=== PATIENT | female | born 1990 | race American Indian/Alaskan Native ===

== ENCOUNTER 2017-06-26 10:55 | Emergency (ER) | payer SELFPAY ==
[2017-06-26 14:28] LABS: Bilirubin,Urine NEG (Negative); Blood,Urine NEG (Negative); Calcium Oxalate Crystals,Urine FEW; Color,Urine Yellow (Yellow); Mucus,Urine 2+ /HPF; Nitrite,Urine NEG (Negative)
[2017-06-26] MEDS ORDERED: BENADRYL PO ONE (17:17)
[2017-06-26] MEDS ORDERED: TYLENOL PO ONE (17:17)
--- NOTE | 2017-06-26 17:45 | Emergency Department Report ---
- General Chief Complaint: Upper Respiratory Infection Stated Complaint: FLU LIKE SYMPTOMS Time Seen by Provider: 06/26/17 16:52 Source: patient Mode of arrival: Ambulatory Limitations: No Limitations - History of Present Illness Initial Comments: 27-year-old female past medical history smoker, currently presents with complaint of 3-4 days of cough sore throat and body aches. MD Complaint: cough, rhinorrhea, nasal congestion Onset/Timin -: days(s) Severity: mild Consistency: constant Improves With: nothing Worsens With: nothing Context: sick contacts Associated Symptoms: fever, headache, nasal congestion, sore throat, cough Treatments Prior to Arrival: none - Related Data Previous Rx's Medication Instructions Recorded Last Taken Type Triamcinolone Acetonide 453 gm TP TID #1 bottle 04/28/13 Unknown Rx [Triamcinolone Acetonide Cream 0.1%] hydrOXYzine HCL [Atarax] 25 mg PO Q6HR PRN #60 tablet 04/28/13 Unknown Rx Acetaminophen [Acetaminophen TAB] 500 mg PO Q6HR PRN #30 tablet 06/26/17 Unknown Rx Benzonatate [Tessalon Perles] 100 mg PO Q8HR PRN #20 capsule 06/26/17 Unknown Rx Dextromethorphan Hb/Doxylamine 10 ml PO Q6H PRN #1 bottle 06/26/17 Unknown Rx [Safetussin Pm Liquid] Ondansetron [Zofran Odt] 4 mg PO Q8H PRN #20 tab.rapdis 06/26/17 Unknown Rx Allergies Allergy/AdvReac Type Severity Reaction Status Date / Time Penicillins Allergy Rash Verified 04/28/13 15:16 ED Review of Systems ROS: Stated complaint: FLU LIKE SYMPTOMS Other details as noted in HPI Constitutional: denies: chills, fever Eyes: denies: eye pain, eye discharge, vision change ENT: throat pain, congestion. denies: ear pain Respiratory: cough. denies: shortness of breath, wheezing Cardiovascular: denies: chest pain, palpitations Endocrine: no symptoms reported Gastrointestinal: denies: abdominal pain, nausea, diarrhea Genitourinary: denies: urgency, dysuria, discharge Musculoskeletal: denies: back pain, joint swelling, arthralgia Skin: denies: rash, lesions Neurological: denies: headache, weakness, paresthesias Psychiatric: denies: anxiety, depression Hematological/Lymphatic: denies: easy bleeding, easy bruising ED Past Medical Hx - Past Medical History Previous Medical History?: Yes Additional medical history: vaginal delivery 12-13-2012 - Surgical History Past Surgical History?: No - Social History Smoking Status: Former Smoker Substance Use Type: Alcohol - Medications Home Medications: Home Medications Medication Instructions Recorded Confirmed Last Taken Type Triamcinolone Acetonide 453 gm TP TID #1 bottle 04/28/13 Unknown Rx [Triamcinolone Acetonide Cream 0.1%] hydrOXYzine HCL [Atarax] 25 mg PO Q6HR PRN #60 tablet 04/28/13 Unknown Rx Acetaminophen [Acetaminophen TAB] 500 mg PO Q6HR PRN #30 tablet 06/26/17 Unknown Rx Benzonatate [Tessalon Perles] 100 mg PO Q8HR PRN #20 capsule 06/26/17 Unknown Rx Dextromethorphan Hb/Doxylamine 10 ml PO Q6H PRN #1 bottle 06/26/17 Unknown Rx [Safetussin Pm Liquid] Ondansetron [Zofran Odt] 4 mg PO Q8H PRN #20 tab.rapdis 06/26/17 Unknown Rx ED Physical Exam - General Limitations: No Limitations General appearance: alert, in no apparent distress - Head Head exam: Present: atraumatic, normocephalic - Eye Eye exam: Present: normal appearance, PERRL, EOMI - ENT ENT exam: Present: mucous membranes moist - Neck Neck exam: Present: normal inspection - Respiratory Respiratory exam: Present: normal lung sounds bilaterally. Absent: respiratory distress - Cardiovascular Cardiovascular Exam: Present: regular rate, normal rhythm. Absent: systolic murmur, diastolic murmur, rubs, gallop - GI/Abdominal GI/Abdominal exam: Present: soft, normal bowel sounds - Extremities Exam Extremities exam: Present: normal inspection - Back Exam Back exam: Present: normal inspection - Neurological Exam Neurological exam: Present: alert, oriented X3 - Psychiatric Psychiatric exam: Present: normal affect, normal mood - Skin Skin exam: Present: warm, dry, intact, normal color. Absent: rash ED Course Vital Signs 06/26/17 12:04 Temperature 98.6 F Pulse Rate 94 H Respiratory 20 Rate Blood Pressure 118/76 O2 Sat by Pulse 99 Oximetry ED Medical Decision Making - Medical Decision Making A/P: Flulike symptoms, 1-safetussin, cepacol throat lozenges, Tylenol when necessary. 2-case discussed with Dr. Ramsey for discharge. As patient's symptoms started approximately 4 days ago it is unlikely that Tamiflu will be clinically useful for patient. Flu swab negative 3-vital signs stable for discharge 4- follow-up with primary care and [facility]. Patient has no vaginal bleeding at this time. Critical care attestation.: If time is entered above; I have spent that time in minutes in the direct care of this critically ill patient, excluding procedure time. ED Disposition Clinical Impression: Flu-like symptoms, Viral syndrome, Cough Disposition: DC- TO HOME OR SELFCARE Is pt being admited?: No Does the pt Need Aspirin: No Condition: Stable Instructions: Viral Syndrome (ED), Upper Respiratory Infection (ED), Cold Symptoms (ED), (ED) Prescriptions: Acetaminophen [Acetaminophen TAB] 500 mg PO Q6HR PRN #30 tablet PRN Reason: Fever Benzonatate [Tessalon Perles] 100 mg PO Q8HR PRN #20 capsule PRN Reason: Cough Dextromethorphan Hb/Doxylamine [Safetussin Pm Liquid] 10 ml PO Q6H PRN #1 bottle PRN Reason: Cough Ondansetron [Zofran Odt] 4 mg PO Q8H PRN #20 tab.rapdis PRN Reason: Nausea Referrals: [facility] [place] [Outside] - 3-5 Days [facility] [Outside] - 3-5 Days [facility] [Provider Group] - 3-5 Days [facility] [Provider Group] - 3-5 Days Forms: Accompanied Note, Work/School Release Form(ED) Time of Disposition: 19:23
[2017-06-26 19:49] VITALS: BP 117/80
== END 2017-06-26 19:40 | disposition home or self-care (01) ==
LOC: ED 10:55
DX: O26.899 Other specified pregnancy related conditions, unspecified trimester (principal); B34.9 Viral infection, unspecified; Z88.0 Allergy status to penicillin; Z3A.00 Weeks of gestation of pregnancy not specified; Z87.891 Personal history of nicotine dependence
CPT/HCPCS: 36415; 81001; 84702; 87400; 99283

== ENCOUNTER 2019-02-16 12:13 | Emergency (ER) | payer SELFPAY ==
--- NOTE | 2019-02-16 13:29 | Event Note ---
ED Screening Note ED Screening Note: vaginal bleeding for two weeks states she has two menstrual cycles a month changing tampons every hour has not been to the [facility] This initial assessment/diagnostic orders/clinical plan/treatment(s) is/are subject to change based on patients health status, clinical progression and re- assessment by fellow clinical providers in the ED. Further treatment and workup at subsequent clinical providers discretion. Patient/guardian urged not to elope from the ED as their condition may be serious if not clinically assessed and managed. Initial orders include: ua, labs
[2019-02-16 14:04] LABS: Hematocrit 42.8 % (30.3-42.9); Hemoglobin 14.2 gm/dl (10.1-14.3); Mean Corpuscular HGB Conc 33 % (30-34); Mean Corpuscular Volume 97 fl (79-97); Platelet Count 283 K/mm3 (140-440); Red Blood Count 4.41 M/mm3 (3.65-5.03); Red Cell Distribution Width 13.4 % (13.2-15.2)
[2019-02-16 14:22] LABS: Mucus,Urine 2+ /HPF
[2019-02-16 14:32] LABS: Bilirubin,Urine NEG (Negative); Blood,Urine NEG (Negative); Color,Urine Yellow (Yellow); Protein,Urine <15 mg/dL mg/dL (Negative); Urobilinogen,Urine < 2.0 mg/dL (<2.0)
[2019-02-16 17:47] LABS: Monocytes % (Manual) 0 % (0.0-7.3); RBC Morphology Normal; Total Cells Counted 100
[2019-02-16] MEDS ORDERED: ULTRAM PO ONE (17:59)
--- NOTE | 2019-02-16 19:04 | Emergency Department Report ---
ED Female HPI - General Chief complaint: Abdominal Pain Stated complaint: PELVIC PAIN/FIBRIODS PAIN/FATIGUE Time Seen by Provider: 02/16/19 13:27 Source: patient Mode of arrival: Ambulatory Limitations: No Limitations - History of Present Illness Initial comments: This is a 29-year-old female who presents to ED complaining of vaginal bleeding for the past 2 weeks. Patient states that she had had irregular cycles since she got out one time Depo shot in January 2018. Patient states she is currently not in any form of control. Patient states that this episode began 2 weeks ago and is undergoing still. Patient is also complaining of some pelvic cramping with bleeding. Patient denies being sexually active and states that she is not worried about an STD. She denies fevers/chills/nausea or vomiting/S of breath or any other problems MD Complaint: vaginal bleeding - Related Data Previous Rx's Medication Instructions Recorded Last Taken Type Triamcinolone Acetonide 453 gm TP TID #1 bottle 04/28/13 Unknown Rx [Triamcinolone Acetonide Cream 0.1%] hydrOXYzine HCL [Atarax] 25 mg PO Q6HR PRN #60 tablet 04/28/13 Unknown Rx Acetaminophen [Acetaminophen TAB] 500 mg PO Q6HR PRN #30 tablet 06/26/17 Unknown Rx Benzonatate [Tessalon Perles] 100 mg PO Q8HR PRN #20 capsule 06/26/17 Unknown Rx Dextromethorphan Hb/Doxylamine 10 ml PO Q6H PRN #1 bottle 06/26/17 Unknown Rx [Safetussin Pm Liquid] Ondansetron [Zofran Odt] 4 mg PO Q8H PRN #20 tab.rapdis 06/26/17 Unknown Rx HYDROcodone/APAP 5-325 [[place] 1 each PO Q6HR PRN #10 tablet 04/18/18 Unknown Rx 5/325] Ibuprofen [Motrin] 800 mg PO Q8HR #800 tablet 02/16/19 Unknown Rx medroxyPROGESTERone ACETATE 10 mg PO DAILY #10 tablet 02/16/19 Unknown Rx [Provera] traMADol [Ultram 50 MG tab] 50 mg PO Q6HR PRN #10 tablet 02/16/19 Unknown Rx Allergies Allergy/AdvReac Type Severity Reaction Status Date / Time Penicillins Allergy Rash Verified 04/28/13 15:16 ED Review of Systems ROS: Stated complaint: PELVIC PAIN/FIBRIODS PAIN/FATIGUE Other details as noted in HPI Comment: All other systems reviewed and negative ED Past Medical Hx - Past Medical History Previous Medical History?: No Additional medical history: vaginal delivery 12-13-2012 - Surgical History Past Surgical History?: No - Social History Smoking Status: Never Smoker Substance Use Type: None - Medications Home Medications: Home Medications Medication Instructions Recorded Confirmed Last Taken Type Triamcinolone Acetonide 453 gm TP TID #1 bottle 04/28/13 Unknown Rx [Triamcinolone Acetonide Cream 0.1%] hydrOXYzine HCL [Atarax] 25 mg PO Q6HR PRN #60 tablet 04/28/13 Unknown Rx Acetaminophen [Acetaminophen TAB] 500 mg PO Q6HR PRN #30 tablet 06/26/17 Unknown Rx Benzonatate [Tessalon Perles] 100 mg PO Q8HR PRN #20 capsule 06/26/17 Unknown Rx Dextromethorphan Hb/Doxylamine 10 ml PO Q6H PRN #1 bottle 06/26/17 Unknown Rx [Safetussin Pm Liquid] Ondansetron [Zofran Odt] 4 mg PO Q8H PRN #20 tab.rapdis 06/26/17 Unknown Rx HYDROcodone/APAP 5-325 [[place] 1 each PO Q6HR PRN #10 tablet 04/18/18 Unknown Rx 5/325] Ibuprofen [Motrin] 800 mg PO Q8HR #800 tablet 02/16/19 Unknown Rx medroxyPROGESTERone ACETATE 10 mg PO DAILY #10 tablet 02/16/19 Unknown Rx [Provera] traMADol [Ultram 50 MG tab] 50 mg PO Q6HR PRN #10 tablet 02/16/19 Unknown Rx ED Physical Exam - General Limitations: No Limitations General appearance: alert, in no apparent distress - Head Head exam: Present: atraumatic, normocephalic - Eye Eye exam: Present: normal appearance - ENT ENT exam: Present: mucous membranes moist - Neck Neck exam: Present: normal inspection - Respiratory Respiratory exam: Present: normal lung sounds bilaterally. Absent: respiratory distress - Cardiovascular Cardiovascular Exam: Present: regular rate, normal rhythm. Absent: systolic murmur, diastolic murmur, rubs, gallop - GI/Abdominal GI/Abdominal exam: Present: soft, normal bowel sounds - Extremities Exam Extremities exam: Present: normal inspection - Back Exam Back exam: Present: normal inspection - Neurological Exam Neurological exam: Present: alert, oriented X3 - Psychiatric Psychiatric exam: Present: normal affect, normal mood - Skin Skin exam: Present: warm, dry, intact, normal color. Absent: rash ED Course Vital Signs 02/16/19 13:28 Temperature 98.1 F Pulse Rate 78 Respiratory 16 Rate Blood Pressure 150/88 O2 Sat by Pulse 98 Oximetry ED Medical Decision Making - Lab Data Result diagrams: 02/16/19 13:46 Laboratory Last Values WBC 12.7 K/mm3 (4.5-11.0) H 02/16/19 13:46 RBC 4.41 M/mm3 (3.65-5.03) 02/16/19 13:46 Hgb 14.2 gm/dl (10.1-14.3) 02/16/19 13:46 Hct 42.8 % (30.3-42.9) 02/16/19 13:46 MCV 97 fl (79-97) 02/16/19 13:46 MCH 32 pg (28-32) 02/16/19 13:46 MCHC 33 % (30-34) 02/16/19 13:46 RDW 13.4 % (13.2-15.2) 02/16/19 13:46 Plt Count 283 K/mm3 (140-440) 02/16/19 13:46 Lymph # [employer] 02/16/19 13:46 Add Manual Diff Complete 02/16/19 13:46 Total Counted 100 02/16/19 13:46 Seg Neuts % (Manual) 59.0 % (40.0-70.0) 02/16/19 13:46 0 % 02/16/19 13:46 38.0 % (13.4-35.0) H 02/16/19 13:46 Reactive Lymphs % (Man) 0 % 02/16/19 13:46 0 % (0.0-7.3) 02/16/19 13:46 1.0 % (0.0-4.3) 02/16/19 13:46 2.0 % (0.0-1.8) H 02/16/19 13:46 0 % 02/16/19 13:46 0 % 02/16/19 13:46 0 % 02/16/19 13:46 0 % 02/16/19 13:46 Nucleated RBC % Not Reportable 02/16/19 13:46 Seg Neutrophils # Man 7.5 K/mm3 (1.8-7.7) 02/16/19 13:46 Band Neutrophils # 0.0 K/mm3 02/16/19 13:46 4.8 K/mm3 (1.2-5.4) 02/16/19 13:46 Abs React Lymphs (Man) 0.0 K/mm3 02/16/19 13:46 0.0 K/mm3 (0.0-0.8) 02/16/19 13:46 0.1 K/mm3 (0.0-0.4) 02/16/19 13:46 0.3 K/mm3 (0.0-0.1) H 02/16/19 13:46 0.0 K/mm3 02/16/19 13:46 0.0 K/mm3 02/16/19 13:46 0.0 K/mm3 02/16/19 13:46 Blast Cells # 0.0 K/mm3 02/16/19 13:46 WBC Morphology Not Reportable 02/16/19 13:46 Hypersegmented Neuts Not Reportable 02/16/19 13:46 Hyposegmented Neuts Not Reportable 02/16/19 13:46 Hypogranular Neuts Not Reportable 02/16/19 13:46 Not Reportable 02/16/19 13:46 Not Reportable 02/16/19 13:46 Not Reportable 02/16/19 13:46 Not Reportable 02/16/19 13:46 Not Reportable 02/16/19 13:46 Not Reportable 02/16/19 13:46 Appears normal 02/16/19 13:46 Not Reportable 02/16/19 13:46 Plt Clumps, EDTA Not Reportable 02/16/19 13:46 Not Reportable 02/16/19 13:46 Not Reportable 02/16/19 13:46 Not Reportable 02/16/19 13:46 Plt Morphology Comment Not Reportable 02/16/19 13:46 RBC Morphology Normal 02/16/19 13:46 Dimorphic RBCs Not Reportable 02/16/19 13:46 Not Reportable 02/16/19 13:46 Not Reportable 02/16/19 13:46 Not Reportable 02/16/19 13:46 Not Reportable 02/16/19 13:46 Not Reportable 02/16/19 13:46 Not Reportable 02/16/19 13:46 Not Reportable 02/16/19 13:46 Not Reportable 02/16/19 13:46 Not Reportable 02/16/19 13:46 Not Reportable 02/16/19 13:46 Not Reportable 02/16/19 13:46 Not Reportable 02/16/19 13:46 Not Reportable 02/16/19 13:46 Not Reportable 02/16/19 13:46 Not Reportable 02/16/19 13:46 Not Reportable 02/16/19 13:46 Not Reportable 02/16/19 13:46 Not Reportable 02/16/19 13:46 Not Reportable 02/16/19 13:46 Acanthocytes (Spur) Not Reportable 02/16/19 13:46 Rouleaux Not Reportable 02/16/19 13:46 Not Reportable 02/16/19 13:46 Not Reportable 02/16/19 13:46 Not Reportable 02/16/19 13:46 Not Reportable 02/16/19 13:46 Hem Pathologist Commnt No 02/16/19 13:46 HCG, Quant < 2 mIU/mL (0-4) 02/16/19 13:46 Yellow (Yellow) 02/16/19 13:44 Clear (Clear) 02/16/19 13:44 5.0 (5.0-7.0) 02/16/19 13:44 Ur Specific [place] 1.028 (1.003-1.030) 02/16/19 13:44 <15 mg/dl mg/dL (Negative) 02/16/19 13:44 Neg mg/dL (Negative) 02/16/19 13:44 Neg mg/dL (Negative) 02/16/19 13:44 Neg (Negative) 02/16/19 13:44 Neg (Negative) 02/16/19 13:44 Ur Reducing Substances Not Reportable 02/16/19 13:44 Neg (Negative) 02/16/19 13:44 Not Reportable 02/16/19 13:44 < 2.0 mg/dL (<2.0) 02/16/19 13:44 Ur Leukocyte Esterase Neg (Negative) 02/16/19 13:44 1.0 /HPF (0.0-6.0) 02/16/19 13:44 3.0 /HPF (0.0-6.0) 02/16/19 13:44 U Epithel Cells (Auto) 3.0 /HPF (0-13.0) 02/16/19 13:44 2+ /HPF 02/16/19 13:44 - Radiology Data Radiology results: report reviewed, image reviewed Pelvic ultrasound. 02/16/2019. HISTORY: Heavy bleeding. FINDINGS: Imaging was performed transabdominally and endovaginally. Uterus measures 8.6 x 4.2 x 5.7 cm. Endometrial stripe measures 4 mm. The myometrium is mildly heterogeneous and demonstrates a few small echogenic foci. Right ovary measures 3.5 x 1.5 x 3.5 cm. Left ovary measures 3.6 x 2.1 x 2.6 cm. Both ovaries demonstrate appropriate flow. Negative for adnexal mass or fluid. IMPRESSION: 1. Suspected adenomyosis. 2. Ovaries normal. Signer Name: Yariel Fish MD Signed: 02/16/2019 7:36 PM Workstation Name: [id number] Transcribed By: ES Dictated By: Yariel Fish MD Electronically Authenticated By: Yariel Fish MD Signed Date/Time: 02/16/19 193 - Medical Decision Making 29-year-old female presents with dysfunctional uterine bleeding most likely due to adenomyosis. all her lab findings were normal. No signs of low hematocrit and hemoglobin. All other labs within normal limits , reported above Ultrasound findings consistent with adenomyosis he reported above. Discussed findings with the patient. [facility] referral is given to patient. Discussed the patient and encourage follow-up with the [facility] for continued care. Vital signs are normal patient is in no acute distress Critical care attestation.: If time is entered above; I have spent that time in minutes in the direct care of this critically ill patient, excluding procedure time. ED Disposition Clinical Impression: Uterine bleeding, dysfunctional, Adenomyosis Disposition: - TO HOME OR SELFCARE Is pt being admited?: No Does the pt Need Aspirin: No Condition: Stable Instructions: Dysfunctional Uterine Bleeding (ED), Abdominal Pain (ED), Menorrhagia (ED), Robot Assisted Laparoscopic Hysterectomy (GEN) Additional Instructions: Make sure to follow up with the primary care physician as discussed. Take all your medications as you've been prescribed. If you have any worsening symptoms or develop new symptoms please return to ED immediately. Prescriptions: Ibuprofen [Motrin] 800 mg PO Q8HR #800 tablet medroxyPROGESTERone ACETATE [Provera] 10 mg PO DAILY #10 tablet traMADol [Ultram 50 MG tab] 50 mg PO Q6HR PRN #10 tablet PRN Reason: Pain Referrals: PRIMARY CARE, [Primary Care Provider] - 3-5 Days [facility] [Outside] - 3-5 Days [facility] [Outside] - 3-5 Days [facility] [Provider Group] - 3-5 Days [facility] [Provider Group] - 3-5 Days Forms: Accompanied Note, Work/School Release Form(ED) Time of Disposition: 19:48
--- NOTE | 2019-02-16 19:40 | Ultrasound Report ---
Pelvic ultrasound. 02/16/2019. HISTORY: Heavy bleeding. FINDINGS: Imaging was performed transabdominally and endovaginally. Uterus measures 8.6 x 4.2 x 5.7 cm. Endometrial stripe measures 4 mm. The myometrium is mildly hetero geneous and demonstrates a few small echogenic foci. Right ovary measures 3.5 x 1.5 x 3.5 cm. Left ovary measures 3.6 x 2.1 x 2.6 cm. Both ovaries demonst rate appropriate flow. Negative for adnexal mass or fluid. IMPRESSION: 1. Suspected adenomyosis. 2. Ovaries normal. Signer Name: Yariel Fish MD Signed: 02/16/2019 7:36 PM Workstation Name: [id number]
[2019-02-16 20:11] VITALS: BP 136/89
== END 2019-02-16 20:00 | disposition home or self-care (01) ==
LOC: ED 12:13
DX: N93.8 Other specified abnormal uterine and vaginal bleeding (principal); N80.0 Endometriosis of uterus; Z79.899 Other long term (current) drug therapy; Z88.0 Allergy status to penicillin
CPT/HCPCS: 36415; 76830; 76856; 81001; 84702; 85007; 85025

== ENCOUNTER 2020-07-05 11:40 | Emergency (ER) | payer MEDICAID ==
[2020-07-05 11:47] VITALS: BP 135/92
--- NOTE | 2020-07-05 11:48 | Emergency Department Report ---
ED General Adult HPI - General Stated complaint: TOOTH PROBLEMS PUI?: No Time Seen by Provider: 07/05/20 11:45 - History of Present Illness Initial comments: Patient reports left upper dental pain, onset over the past couple days. States that other teeth apart in the past but not this 1. States that she is been trying to get an appoint with a dentist but nobody can see her until next month. Denies fevers but does report some mild facial swelling which she states actually improved a little bit today. Denies any other systemic illness or complaints. Pain is moderate to severe not relieved by [id number] products tried. Nothing makes worse. - Related Data Previous Rx's Medication Instructions Recorded Last Taken Type Triamcinolone Acetonide 453 gm TP TID #1 bottle 04/28/13 Unknown Rx [Triamcinolone Acetonide Cream 0.1%] hydrOXYzine HCL [Atarax] 25 mg PO Q6HR PRN #60 tablet 04/28/13 Unknown Rx Acetaminophen [Acetaminophen TAB] 500 mg PO Q6HR PRN #30 tablet 06/26/17 Unknown Rx Benzonatate [Tessalon Perles] 100 mg PO Q8HR PRN #20 capsule 06/26/17 Unknown Rx Dextromethorphan Hb/Doxylamine 10 ml PO Q6H PRN #1 bottle 06/26/17 Unknown Rx [Safetussin Pm Liquid] Ondansetron [Zofran Odt] 4 mg PO Q8H PRN #20 tab.rapdis 06/26/17 Unknown Rx HYDROcodone/APAP 5-325 [[place] 1 each PO Q6HR PRN #10 tablet 04/18/18 Unknown Rx 5/325] medroxyPROGESTERone ACETATE 10 mg PO DAILY #10 tablet 02/16/19 Unknown Rx [Provera] traMADoL [Ultram 50 MG tab] 50 mg PO Q6HR PRN #10 tablet 02/16/19 Unknown Rx Clindamycin [Clindamycin CAP] 450 mg PO Q8HR #90 capsule 07/05/20 Unknown Rx Ibuprofen [Motrin 800 MG tab] 800 mg PO Q8HR #21 tablet 07/05/20 Unknown Rx Allergies Allergy/AdvReac Type Severity Reaction Status Date / Time Penicillins Allergy Rash Verified 07/05/20 11:40 ED Review of Systems ROS: Stated complaint: TOOTH PROBLEMS Other details as noted in HPI Comment: All other systems reviewed and negative ENT: as per HPI ED Past Medical Hx - Past Medical History Additional medical history: vaginal delivery 12-13-2012 - Social History Smoking Status: Never Smoker Substance Use Type: None - Medications Home Medications: Home Medications Medication Instructions Recorded Confirmed Last Taken Type Triamcinolone Acetonide 453 gm TP TID #1 bottle 04/28/13 Unknown Rx [Triamcinolone Acetonide Cream 0.1%] hydrOXYzine HCL [Atarax] 25 mg PO Q6HR PRN #60 tablet 04/28/13 Unknown Rx Acetaminophen [Acetaminophen TAB] 500 mg PO Q6HR PRN #30 tablet 06/26/17 Unknown Rx Benzonatate [Tessalon Perles] 100 mg PO Q8HR PRN #20 capsule 06/26/17 Unknown Rx Dextromethorphan Hb/Doxylamine 10 ml PO Q6H PRN #1 bottle 06/26/17 Unknown Rx [Safetussin Pm Liquid] Ondansetron [Zofran Odt] 4 mg PO Q8H PRN #20 tab.rapdis 06/26/17 Unknown Rx HYDROcodone/APAP 5-325 [[place] 1 each PO Q6HR PRN #10 tablet 04/18/18 Unknown Rx 5/325] medroxyPROGESTERone ACETATE 10 mg PO DAILY #10 tablet 02/16/19 Unknown Rx [Provera] traMADoL [Ultram 50 MG tab] 50 mg PO Q6HR PRN #10 tablet 02/16/19 Unknown Rx Clindamycin [Clindamycin CAP] 450 mg PO Q8HR #90 capsule 07/05/20 Unknown Rx Ibuprofen [Motrin 800 MG tab] 800 mg PO Q8HR #21 tablet 07/05/20 Unknown Rx ED Physical Exam - General General appearance: alert, in no apparent distress - Head Head exam: Present: atraumatic, normocephalic - Eye Eye exam: Present: normal appearance - ENT ENT exam: Present: mucous membranes moist, other (Overall fairly normal dentition however there is pain to the left upper second molar with tenderness and minimal overlying facial edema, no trismus, uvula midline) - Neck Neck exam: Present: normal inspection, full ROM - Respiratory Respiratory exam: Present: normal lung sounds bilaterally. Absent: respiratory distress - Cardiovascular Cardiovascular Exam: Present: regular rate, normal rhythm. Absent: systolic murmur, diastolic murmur, rubs, gallop - GI/Abdominal GI/Abdominal exam: Present: soft, normal bowel sounds - Extremities Exam Extremities exam: Present: normal inspection - Back Exam Back exam: Present: normal inspection - Neurological Exam Neurological exam: Present: alert, oriented X3 - Psychiatric Psychiatric exam: Present: normal affect, normal mood - Skin Skin exam: Present: warm, dry, intact, normal color. Absent: rash ED Course Vital Signs 07/05/20 11:45 Temperature 98.9 F Pulse Rate 117 H Respiratory 18 Rate Blood Pressure 135/92 O2 Sat by Pulse 98 Oximetry ED Medical Decision Making - Medical Decision Making Patient with dental pain with likely localized infection, will give prescription for antibiotics and referred to local dental clinics. No complication at this time. - Differential Diagnosis Dental pain, abscess Critical care attestation.: If time is entered above; I have spent that time in minutes in the direct care of this critically ill patient, excluding procedure time. ED Disposition Clinical Impression: Pain, dental Disposition: DC-01 TO HOME OR SELFCARE Is pt being admited?: No Condition: Good Instructions: Dental Abscess Prescriptions: Clindamycin [Clindamycin CAP] 450 mg PO Q8HR #90 capsule Ibuprofen [Motrin 800 MG tab] 800 mg PO Q8HR #21 tablet Time of Disposition: 11:47
== END 2020-07-05 12:04 | disposition home or self-care (01) ==
LOC: ED 11:40
DX: K08.89 Other specified disorders of teeth and supporting structures (principal); Z79.1 Long term (current) use of non-steroidal anti-inflammatories (NSAID); Z79.2 Long term (current) use of antibiotics; Z79.899 Other long term (current) drug therapy; Z88.0 Allergy status to penicillin
CPT/HCPCS: 99282

== ENCOUNTER 2021-08-03 07:03 | Emergency (ER) | payer SELFPAY ==
[2021-08-03 07:14] VITALS: BP 144/93
[2021-08-03 07:35] LABS: Mucus,Urine FEW /HPF
[2021-08-03 07:39] LABS: Bilirubin,Urine Negative (Negative); Blood,Urine Negative (Negative); Color,Urine Yellow (Yellow); Protein,Urine <15 mg/dL mg/dL (Negative); Urobilinogen,Urine < 2.0 mg/dL (<2.0)
[2021-08-03 07:52] LABS: Hematocrit 43.7 % (30.3-42.9); Hemoglobin 14.4 gm/dl (10.1-14.3); Mean Corpuscular HGB Conc 33 % (30-34); Mean Corpuscular Volume 100 fl (79-97); Platelet Count 320 K/mm3 (140-440); Red Blood Count 4.38 M/mm3 (3.65-5.03); Red Cell Distribution Width 13.1 % (13.2-15.2)
[2021-08-03 08:06] LABS: Blood Urea Nitrogen 10 mg/dL (7-17); Calcium 10.1 mg/dL (8.4-10.2); Hemolysis Index 9
[2021-08-03 08:08] LABS: BUN/Creatinine Ratio 17
--- NOTE | 2021-08-03 08:22 | Emergency Department Report ---
ED Female HPI - General Chief complaint: Vaginal Bleeding Stated complaint: SPOTTING Time Seen by Provider: 08/03/21 07:11 Source: patient Mode of arrival: Ambulatory Limitations: No Limitations - History of Present Illness Initial comments: 31 YO COMES TO ER WITH VAG BLEEDING. LIGHT OFF AND ON. SHE IS . LMP END OF APRIL BUT SHE SPOTTED IN MAY. DID NOT SEE OBGYN BECAUSE SHE WAS NOT SURE SHE WAS GOING TO KEEP THE CHILD. SHE DECIDED TO KEEP CHILD SO SHE COMES TODAY TO GET PROOF OF FOR INSURANCE MD Complaint: vaginal bleeding -: Gradual, days(s) Severity: mild Consistency: intermittent Improves with: none Worsens with: none Are you Now?: Yes Associated Symptoms: denies other symptoms, vaginal bleeding. denies: vaginal discharge, abdominal pain, nausea/vomiting, fever/chills, headaches, loss of appetite, dysuria, hematuria, rash, seizure, shortness of breath, syncope, weakness - Related Data Sexually active: Yes : 4 Para: 0 A: 3 Allergies Allergy/AdvReac Type Severity Reaction Status Date / Time Penicillins Allergy Rash Verified 07/05/20 11:40 ED Review of Systems ROS: Stated complaint: SPOTTING Other details as noted in HPI Comment: All other systems reviewed and negative ED Past Medical Hx - Past Medical History Previous Medical History?: Yes Additional medical history: vaginal delivery 12-13-2012. Endometriosis - Surgical History Past Surgical History?: No - Social History Smoking Status: Never Smoker Substance Use Type: None ED Physical Exam - General Limitations: No Limitations General appearance: alert, in no apparent distress - Head Head exam: Present: atraumatic, normocephalic - Eye Eye exam: Present: normal appearance - ENT ENT exam: Present: mucous membranes moist - Neck Neck exam: Present: normal inspection - Respiratory Respiratory exam: Present: normal lung sounds bilaterally. Absent: respiratory distress - Cardiovascular Cardiovascular Exam: Present: regular rate, normal rhythm. Absent: systolic murmur, diastolic murmur, rubs, gallop - GI/Abdominal GI/Abdominal exam: Present: soft, normal bowel sounds - Extremities Exam Extremities exam: Present: normal inspection - Back Exam Back exam: Present: normal inspection - Neurological Exam Neurological exam: Present: alert, oriented X3 - Psychiatric Psychiatric exam: Present: normal affect, normal mood - Skin Skin exam: Present: warm, dry, intact, normal color. Absent: rash ED Course Vital Signs 08/03/21 07:09 Temperature 98.4 F Pulse Rate 71 Respiratory 16 Rate Blood Pressure 144/93 [Right] O2 Sat by Pulse 100 Oximetry ED Medical Decision Making - Lab Data Result diagrams: 08/03/21 07:21 08/03/21 07:21 - Radiology Data Radiology results: report reviewed, image reviewed SEE REPORT - Medical Decision Making Vital Signs 08/03/21 07:09 Temperature 98.4 F Pulse Rate 71 Respiratory 16 Rate Blood Pressure 144/93 [Right] O2 Sat by Pulse 100 Oximetry Lab Results 08/03/21 08/03/21 08/03/21 Range/Units 07:21 07:21 07:21 WBC 11.7 H (4.5-11.0) K/mm3 RBC 4.38 (3.65-5.03) M/mm3 Hgb 14.4 H (10.1-14.3) gm/dl Hct 43.7 H (30.3-42.9) % MCV 100 H (79-97) fl MCH 33 H (28-32) pg MCHC 33 (30-34) % RDW 13.1 L (13.2-15.2) % Plt Count 320 (140-440) K/mm3 Sodium 138 (137-145) mmol/L Potassium 4.1 (3.6-5.0) mmol/L Chloride 102.9 (98-107) mmol/L Carbon Dioxide 18 L (22-30) mmol/L Anion Gap 21 mmol/L BUN 10 (7-17) mg/dL Creatinine 0.6 (0.6-1.2) mg/dL Estimated GFR > 60 ml/min BUN/Creatinine Ratio 17 % Glucose 119 H (65-100) mg/dL Calcium 10.1 (8.4-10.2) mg/dL HCG, Quant (0-4) mIU/mL Urine Color Yellow (Yellow) Urine Turbidity Clear (Clear) Urine pH 5.0 (5.0-7.0) Ur Specific [place] 1.035 H (1.003-1.030) Urine Protein <15 mg/dl (Negative) mg/dL Urine Glucose (UA) Negative (Negative) mg/dL Urine Ketones Negative (Negative) mg/dL Urine Blood Negative (Negative) Urine Nitrite Negative (Negative) Ur Reducing Substances Not Reportable Urine Bilirubin Negative (Negative) Urine Ictotest Not Reportable Urine Urobilinogen < 2.0 (<2.0) mg/dL Ur Leukocyte Esterase Negative (Negative) Urine WBC (Auto) 1.0 (0.0-6.0) /HPF Urine RBC (Auto) 1.0 (0.0-6.0) /HPF U Epithel Cells (Auto) 5.0 (0-13.0) /HPF Urine Mucus Few /HPF Blood Type Ord Rhogam Gestat Weeks WEEKS 08/03/21 08/03/21 Range/Units 07:21 07:21 WBC (4.5-11.0) K/mm3 RBC (3.65-5.03) M/mm3 Hgb (10.1-14.3) gm/dl Hct (30.3-42.9) % MCV (79-97) fl MCH (28-32) pg MCHC (30-34) % RDW (13.2-15.2) % Plt Count (140-440) K/mm3 Sodium (137-145) mmol/L Potassium (3.6-5.0) mmol/L Chloride (98-107) mmol/L Carbon Dioxide (22-30) mmol/L Anion Gap mmol/L BUN (7-17) mg/dL Creatinine (0.6-1.2) mg/dL Estimated GFR ml/min BUN/Creatinine Ratio % Glucose (65-100) mg/dL Calcium (8.4-10.2) mg/dL HCG, Quant 6710 H (0-4) mIU/mL Urine Color (Yellow) Urine Turbidity (Clear) Urine pH (5.0-7.0) Ur Specific [place] (1.003-1.030) Urine Protein (Negative) mg/dL Urine Glucose (UA) (Negative) mg/dL Urine Ketones (Negative) mg/dL Urine Blood (Negative) Urine Nitrite (Negative) Ur Reducing Substances Urine Bilirubin (Negative) Urine Ictotest Urine Urobilinogen (<2.0) mg/dL Ur Leukocyte Esterase (Negative) Urine WBC (Auto) (0.0-6.0) /HPF Urine RBC (Auto) (0.0-6.0) /HPF U Epithel Cells (Auto) (0-13.0) /HPF Urine Mucus /HPF Blood Type B POSITIVE Ord Rhogam Gestat Weeks Rh pos WEEKS HCG NOTED UA NOTED LABS NOTED RH POS US NOTED PT PROVIDED ABOVE INFO. SHE HAS BEEN GIVEN REFERRAL TO OBGYN SHE UNDERSTANDS SHE NEEDS TO SEE THEM IN 48 HOURS FOR RECHECK - Differential Diagnosis RO AB Critical care attestation.: If time is entered above; I have spent that time in minutes in the direct care of this critically ill patient, excluding procedure time. ED Disposition Clinical Impression: Vaginal bleeding during Disposition: HOME / SELF CARE / HOMELESS Is pt being admited?: No Condition: Stable Additional Instructions: tylenol for pain see OBGYN IN 48 HOURS FOR RECHECK REFERRAL BELOW Referrals: OSMAR WANG MD [Referring] - 3-5 Days Time of Disposition: 11:03
--- NOTE | 2021-08-03 10:59 | Ultrasound Report ---
FIRSTTRIMESTER OBSTETRIC ULTRASOUND ULTRASOUND OB TRANSVAGINAL HISTORY: Vaginal bleeding and COMPARISON: None. TECHNIQUE: Routine transabdominal and transvaginal OB ultrasound performed. FINDINGS: Uterus: Mildly enlarged measuring 10.2 x 5.6 x 6.2 cm. Gestational Sac: Well-defined oval shape and intrauterine in location. Yolk Sac: Normal in appearance. Fetus/Embryo: [place]-rump length of 0.55 cm, corresponding to an estimated gestational age of 6 weeks 2 days. Embryonic/ anatomy is too small for evaluation. Embryonic/ cardiac activity: 153bpm Placenta: Too small for evaluation. Amniotic fluid volume: Subjectively appropriate for gestational age. Ovaries: The right ovary is normal in size and appearance with normal blood flow, measuring 3.0 x 1. 0 x 2.5 cm. The left ovary is normal in size and appearance with normal blood flow, measuring 2.5 x 1.6 x 2.6 cm. Additional findings: None. IMPRESSION Viable single intrauterine as described. No abnormality is detected. Signer Name: Aldo Bennett Jr, MD Signed: 08/03/2021 10:54 AM Workstation Name: [id number]
--- NOTE | 2021-08-03 10:59 | Ultrasound Report ---
FIRSTTRIMESTER OBSTETRIC ULTRASOUND ULTRASOUND OB TRANSVAGINAL HISTORY: Vaginal bleeding and COMPARISON: None. TECHNIQUE: Routine transabdominal and transvaginal OB ultrasound performed. FINDINGS: Uterus: Mildly enlarged measuring 10.2 x 5.6 x 6.2 cm. Gestational Sac: Well-defined oval shape and intrauterine in location. Yolk Sac: Normal in appearance. Fetus/Embryo: [place]-rump length of 0.55 cm, corresponding to an estimated gestational age of 6 weeks 2 days. Embryonic/ anatomy is too small for evaluation. Embryonic/ cardiac activity: 153bpm Placenta: Too small for evaluation. Amniotic fluid volume: Subjectively appropriate for gestational age. Ovaries: The right ovary is normal in size and appearance with normal blood flow, measuring 3.0 x 1. 0 x 2.5 cm. The left ovary is normal in size and appearance with normal blood flow, measuring 2.5 x 1.6 x 2.6 cm. Additional findings: None. IMPRESSION Viable single intrauterine as described. No abnormality is detected. Signer Name: Aldo Bennett Jr, MD Signed: 08/03/2021 10:54 AM Workstation Name: [id number]
== END 2021-08-03 11:32 | disposition home or self-care (01) ==
LOC: ED 07:03
DX: O46.91 Antepartum hemorrhage, unspecified, first trimester (principal); N80.9 Endometriosis, unspecified; Z88.0 Allergy status to penicillin; Z3A.01 Less than 8 weeks gestation of pregnancy
CPT/HCPCS: 36415; 76801; 76817; 80048; 81001; 84702; 85027; 86900; 86901; 99284